=== PATIENT | male | born 2005 | race Two or more races ===

== ENCOUNTER → 2025-03-23 | Day surgery (SDC) | payer OTHER ==
[~2025-03-23] MED LIST: BUPIVACAINE LIPOSOME/PF 266 MG/20 ML IJ ONE; EPHEDRINE SULFATE INJ 50 MG/ML VIAL ONE; FENTANYL CITRATE/PF 100MCG/2 ML INJ ONE; ONDANSETRON HCL INJ 2MG/ML 2ML 2 MG/ML VIAL ONE; PROPOFOL IV EMULSION 10 MG/ML 20 ML VIAL ONE; ROCURONIUM BROMIDE 1 ML IV ONE; SUGAMMADEX SODIUM 200 MG/2 ML VIAL IV ONE
[2025-03-23] MEDS: CEFAZOLIN SODIUM 2 GM ONE (07:53)
[2025-03-23] MEDS: LACTATED RINGER'S 1,000 ML ONE (07:53)
[2025-03-23 14:15] VITALS: BP 117/74; PULSE 82; RESP 18; O2SAT 99
== END | disposition home or self-care (01) ==
LOC: OR 07:06
PROVIDERS: ATTEND Orthopaedic Surgery Sports Medicine
DX: S83.521A Sprain of posterior cruciate ligament of right knee, initial encounter (principal); S83.411A Sprain of medial collateral ligament of right knee, initial encounter; S83.261A Peripheral tear of lateral meniscus, current injury, right knee, initial encounter; M94.261 Chondromalacia, right knee; S76.111A Strain of right quadriceps muscle, fascia and tendon, initial encounter; S83.511A Sprain of anterior cruciate ligament of right knee, initial encounter; S83.231A Complex tear of medial meniscus, current injury, right knee, initial encounter; E66.01 Morbid (severe) obesity due to excess calories; V19.88XA Pedal cyclist (driver) (passenger) injured in other specified transport accidents, initial encounter; Y93.55 Activity, bike riding; Y99.8 Other external cause status
CPT/HCPCS: 27405; 27428; 29882; C1713 ×3; C1763; C1776; J0666; J2405; J2704; J3010; J7121; 76000